=== PATIENT | female | born 1995 | race Caucasian/White ===

== ENCOUNTER 2017-04-15 13:24 | Emergency (ER) | payer OTHER ==
[~2017-04-15] VITALS: Ht 149.9 cm; Wt 39.4 kg
[~2017-04-15 13:24] MED LIST: ACETAMINOPHEN325 M1 PO; BACTRIM,SEPT1 TABLET PO; DOXYCYCLINE HY100 M3 PO; NAPROSYN500 MG PO; PYRIDIUM100 MG PO
[2017-04-15 14:53] LABS: HEMATOCRIT 40.8 % (36.0-46.0); MCH 28.8 PG (29.0-34.0); MCHC 33.1 G/DL (30.0-36.0); MEAN PLAT.VOLUME 9.9 uM^3 (9.5-12.4); PLATELET COUNT 427 K/uL (156-360); RBC DIS.WIDTH-CV 12.6 % (11.8-14.6); RED BLOOD COUNT 4.69 M/uL (3.80-5.20); WHITE BLOOD COUNT 10.3 K/uL (4.1-10.2)
[2017-04-15 15:02] LABS: CHLORIDE 104 mEq/L (99-109); SODIUM 139 mEq/L (136-147)
[2017-04-15 15:04] LABS: GLUCOSE 85 mg/dL (70-99)
[2017-04-15 15:05] LABS: ANION GAP 12 MEQ/L (2-14)
[2017-04-15 15:06] LABS: ADD MIUA? YES; BILIRUBIN NEGATIVE; BLOOD NEGATIVE; COLOR AMBER ((YELLOW)); GLUCOSE (STRIP) NEGATIVE; KETONES 20; LEUKOCYTES NEGATIVE; NITRITE NEGATIVE; PROTEIN (STRIP) 100; SPECIFIC GRAVITY 1.027 (1.000-1.030)
[2017-04-15 15:07] LABS: GFR ESTIMATE (CALCULATED) > 59 mL/min/
[2017-04-15 15:08] LABS: UREA NITROGEN (BUN) 8 mg/dL (9-23)
[2017-04-15 15:16] LABS: QUANTITATIVE HCG < 4.0 MIU/ML
[2017-04-15 15:20] LABS: BACTERIA RARE /HPF; EPITHELIAL CELLS RARE /HPF; HYALINE CASTS 0-5 /LPF; MUCUS 2+ /LPF; RED BLOOD CELLS 0-5 /HPF (0-5); WHITE BLOOD CELLS 0-5 /HPF (0-5)
[2017-04-15] MEDS ORDERED: PERCOCET 5/31 TABLET PO (15:55)
[2017-04-15] MEDS ORDERED: ZOFRAN ODT4 MG PO (15:55)
[2017-04-15 16:38] VITALS: BP 120/58
== END 2017-04-15 16:48 | disposition home or self-care (01) ==
LOC: EME 13:24
PROVIDERS: Physician Assistant
DX: R10.9 Unspecified abdominal pain (principal); Q67.6 Pectus excavatum; R07.89 Other chest pain
CPT/HCPCS: 71020; 74176; 80048; 81003; 84702; 85027; 99281; 99284; J1885; J7030